=== PATIENT | female | born 1995 | race Caucasian/White ===

== ENCOUNTER 2017-12-19 18:58 | Emergency (ER) | payer OTHER, SELFPAY ==
[2017-12-19 18:58] VITALS: BP 150/89; PULSE 95; RESP 18; TEMP 36.8; O2SAT 100; BMI 20.5
--- NOTE | 2017-12-19 19:13 | CT_ITS ---
CT Abdomen And Pelvis W/ Contrast INDICATION: RUQ PAIN ONE MONTH, WORSE AFTER EATING COMPARISON: None TECHNIQUE: Axial CT imaging of the abdomen and pelvis with oral and intravenous contrast. Coronal and sagittal reformatted images. Radiation dose optimization technique applied. 100 mL of Isovue-300 were given intravenously. FINDINGS: Visualized lung bases are clear. The heart size is normal. The liver, gallbladder, spleen, adrenal glands, and pancreas are unremarkable. The kidneys enhance contrast symmetrically bilaterally and are without evidence of hydronephrosis. Oral contrast material is seen throughout the stomach, small bowel, and extending into the proximal colon. The appendix is unremarkable. Uterus contains an intrauterine device. There is no evidence of free air or free fluid. The osseous structures are grossly unremarkable. CT/Abdomen/Pelvis WITH Contrast IMPRESSION: No convincing CT evidence of acute intra-abdominal pelvic pathology. Normal appendix. at 2125 Reported and signed by: Keturah Talavera MD Electronically Signed: Keturah Talavera MD at 20:23 EST Tel , Service support ,
[2017-12-19 19:20] LABS: Mucous, Urine 0 SEEN /hpf (<or=2+); Red Blood Cells-Urine 0 SEEN /hpf (0-5)
[2017-12-19] MEDS: Ondansetron 4 MG/2 ML Vial IV ×2 (19:20→20:04)
[2017-12-19] MEDS: 0.9% Normal Saline 1,000 ML 125 ML IV (19:20)
[2017-12-19 19:23] LABS: Absolute Lymphocyte Count 3.89 X10^3/ul (0.83-4.51); Absolute Neutrophil Count 3.2 X10^3/uL (2.0-7.7); Basophil# 0.09 X10^3/uL; Eosinophil# 0.79 X10^3/uL; Eosinophils% 9.2 % (0-5); Hematocrit 39.3 % (37-47); Hemoglobin 13.6 g/dl (12.0-15.0); Lymphocyte # 3.89 X10^3/ul (4.0); Lymphocyte % 45.3 % (19-41); Mean Corp Hgb Conc 34.6 g/gl (32-36); Mean Corpuscular Hgb 29.8 pg (27.0-32.0); Mean Platelet Vol. 9.9 fl (6.2-12.0); Monocyte# 0.66 X10^3/uL; Monocyte% 7.7 % (0-10); Neutrophil # 3.15 X10^3/uL (2.7-7.7); Neutrophil % 36.7 % (47-70); Platelet Count 439 K/mm3 (150-450); RBC Distribution Width CV 12.9 % (11.6-14.6); RBC Distribution Width SD 40.3 fl (35.1-43.9); Red Blood Count 4.57 M/mm3 (4.2-5.4); White Blood Count 8.6 K/mm3 (4.4-11.0)
[2017-12-19 19:25] LABS: Color, Urine Yellow (Yellow); Glucose, Dipstick Normal (Normal); Ketone-Dipstick Negative (Negative); Leukocyte Esterase-Dipstick 25 /ul (Negative); Nitrite-Dipstick Negative (Negative); Occult Blood-Urine 25 /ul (Negative); Protein-Dipstick Negative (Negative); Urine Bilirubin Dipstick Negative (Negative); Urine Clarity Clear (Clear); Urine Urobilinogen Normal (Normal)
[2017-12-19 19:28] LABS: POSITIVE COUNT NO; POSITIVE DIFFERENTIAL NO; POSITIVE MORPHOLOGY NO
[2017-12-19 19:31] LABS: Squamous Epithelial Cells - UA 0-5 SEEN /hpf (5-10); White Blood Cells 0-5 SEEN /hpf (0-5)
[2017-12-19 19:32] LABS: Bacteria RARE /hpf (None Seen)
[2017-12-19 19:37] LABS: BUN 10 mg/dL (7-18); Creatinine, Serum 0.79 mg/dL (0.55-1.02); EST Glomerular Filtration Rate 96 mL/min (>60); Estimated Creatinine Clearance 95.93 ml/min; Glucose 90 mg/dL (74-106)
[2017-12-19 19:38] LABS: ALB/GLOB Ratio 1.3 RATIO (0.9-2.4); AST(SGOT) 12 U/L (15-37); Alanine Aminotransfer ALT/SGPT 21 U/L (13-56); Albumin, Serum 4.3 g/dL (3.2-5.0); Alkaline Phosphatase 50 U/L (45-117); Anion Gap 7 (5-15); BUN/Creat Ratio 12.7 RATIO (10-20); Chloride 108 mmol/L (98-107); Est Glom Filt Rate - Afr Amer 116 mL/min (>60); Globulin 3.2 g/dL (2.2-4.2); Lipase 227 U/L (73-393); Potassium 3.8 mmol/L (3.5-5.1); Protein, Total 7.5 g/dL (6.4-8.2); Sodium Level 143 mmol/L (136-145)
[2017-12-19 19:48] LABS: Pregnancy, Serum, hCG Quali. NEGATIVE Negative (0-9 Nonpreg)
--- NOTE | 2017-12-19 19:56 | ED.VISSUMM ---
- ER Visit Summary Date of Service: 12/19/17 Chief Complaint: [Abdominal pain] History of Present Illness: The patient is a 22 F [presents the emergency department with abdominal discomfort that started 2 months ago. Patient has been having pain after eating especially dairy or fried foods. And can last for several hours after eating. Patient denies any blood in her stool or black tarry stools. Patient has had a lot of belching. She does take some intermittent ibuprofen type products. Patient denies radiation of the pain to her back. Patient last menstrual period was 1 week ago. She denies urinary symptoms.] Physical Examination: [HEENT-PERRLA, EOMI. Cranial nerves II through XII grossly intact. TMs clear. Mucous membranes moist. No adenopathy. Cardiovascular-regular rate and rhythm without murmur or ectopy Lungs-clear to auscultation, chest wall stable without crepitus or subcu emphysema Abdomen-normoactive bowel sounds, soft patient has diffuse tenderness without a Branham sign. There is no rebound, rigidity, or peritoneal signs. Extremities-intact ?4, normal range of motion, normal pulses, atraumatic] Test Results: [CBC with differential showed a white blood cell count of 8.6, hemoglobin 13.6, hematocrit 39, platelets 439. Miriam's were normal. LFTs were normal. Urinalysis was normal. HCG was normal. CT scan of the abdomen and pelvis] Emergency Department Course and Treatment: [] Treatment Plan: [] Disposition: [] Impression: [] This note was generated with [employer] dictation software. It may contain incorrect words, spelling, and punctuation that were not noted in review of the chart prior to signing ED Disposition - Plan for ED Patient: Chief Complaint: Abd Pain Referrals: Thelma Sanchez MD [Primary Care Provider] -
--- NOTE | 2017-12-19 21:30 | ED.VISSUMM ---
- ER Visit Summary Date of Service: 12/19/17 Chief Complaint: [Addendum to initial dictation] History of Present Illness: The patient is a 22 F [] Physical Examination: [] Test Results: [CT scan of the abdomen and pelvis was read by radiology as essentially normal] Emergency Department Course and Treatment: [Was medicated with Zofran in the emergency department she had good improvement in her nausea.] Treatment Plan: [Patient will be referred to general surgeon wireless sales consultant for no doc which will be Dr. Delvin Huber. Given her symptomatology she may need further workup and evaluation to rule out biliary dysfunction versus peptic ulcer disease. Patient will be started on Prevacid and be given a prescription for Zofran.] Disposition: [Discharged to home in stable condition. Patient advised to return if worsening abdominal pain, persistent vomiting, fever, or condition should worsen in any way. Patient to return if blood in her stool or hematemesis.] Impression: [Abdominal pain-etiology uncertain] This note was generated with [employer] dictation software. It may contain incorrect words, spelling, and punctuation that were not noted in review of the chart prior to signing ED Disposition - Plan for ED Patient: Chief Complaint: Abd Pain Referrals: Thelma Sanchez MD [Primary Care Provider] -
--- NOTE | 2017-12-19 21:32 | ED.DEP ---
ED Disposition - Plan for ED Patient: Chief Complaint: Abd Pain Instructions: ED Abdominal Pain Unkn Cause, ED PUD Vs Gastritis Prescriptions: Ondansetron [Zofran Odt] 4 mg PO Q8H PRN PRN #10 tab PRN Reason: Nausea Lansoprazole [Prevacid] 30 mg PO DAILY #30 cap Referrals: Thelma Sanchez MD [Primary Care Provider] - Delvin Huber MD [STAFF PHYSICIAN] - 3-5 Days
[2017-12-19 21:37] VITALS: BP 101/68; PULSE 77; RESP 18; O2SAT 100
== END 2017-12-19 21:38 | disposition home or self-care (01) ==
LOC: ED 19:17
PROVIDERS: Emergency Provider Emergency Medicine; Family Provider Family Medicine; PCP Family Medicine
DX: R10.9 Unspecified abdominal pain (principal); R11.0 Nausea
CPT/HCPCS: 74177; 80053; 81001; 83690; 84703; 85025; 96361; 96374; 96376; 99285; J7030; Q9967; A4216; J2405